=== PATIENT | male | born 1955 | race Caucasian/White ===

== ENCOUNTER → 2024-09-16 11:06 | Outpatient (REF) | payer MEDICARE, SELFPAY | LOC: RAD 11:06 | PROVIDERS: ATTENDING PHYSICIAN Internal Medicine Geriatric Medicine | DX: M25.512 Pain in left shoulder (principal) | CPT/HCPCS: 73030 ==

== ENCOUNTER 2025-04-08 12:33 | Emergency (ER) | payer MEDICARE, SELFPAY ==
[2025-04-08 12:35] VITALS: BP 152/87
[2025-04-08 13:41] LABS: Hematocrit 39.0 % (39.0-52.0); Hemoglobin 13.1 g/dL (13.0-18.0); Mean Corp Hgb Conc. 33.6 g/dL (33.0-37.0); Mean Corpuscular Volume 89.7 fL (80.0-94.0); Nucleated Red Blood Cells % 0 % (-); Platelet Count 244 10^3/uL (130-400); Red Cell Dist. Width 12.1 % (11.5-14.5)
[2025-04-08 13:51] LABS: INR 0.90; PT 12.4 Sec (11.4-14.6)
[2025-04-08 13:52] LABS: APTT 25.3 Sec (23.4-35.0)
[2025-04-08 14:01] LABS: ALT (SGPT) 27 U/L (0-50); AST (SGOT) 28 U/L (17-59); Albumin 4.4 g/dl (3.5-5.0); Alkaline Phosphatase 40 U/L (38-126); Blood Urea Nitrogen 18 mg/dl (9-20); Calcium 9.4 mg/dl (8.4-10.2); Carbon Dioxide 31 mmol/L (22-30); Chloride 101 mmol/L (98-107); Glucose 104 mg/dl (70-99); Potassium 4.3 mmol/L (3.5-5.1); Sodium 138 mmol/L (135-145); Total Protein 7.2 g/dl (6.3-8.2); eGFR > 60.00
--- NOTE | 2025-04-08 15:19 | ED.GENMED ---
History of Present Illness
General
Chief Complaint: DVT/Possible Blood Clot
Source: patient
Exam Limitations: none
Time Seen by Provider: 04/08/25 12:56
Nursing documentation reviewed up to this point in time: agreed with
Course
Orders/Labs/Results
Orders:
Orders
04/08/25 12:41
Legs, left US [US Periph Venous LOWER Ext LT] Urgent
Comment:
Reason For Exam: left lower leg/calf redness and pain x 4days
04/08/25 13:34
Complete Blood Count/With Diff Urgent
Comprehensive Metabolic Panel Urgent
PTT Urgent
Prothrombin Time Urgent
Abnormal Lab Results
04/08/25
13:34
WBC 4.3 L 10^3/uL
(4.8-10.8)
RBC 4.35 L 10^6/uL
(4.70-6.10)
Monocytes % 12.6 H %
(1.7-9.3)
Eosinophils % 6.7 H %
(0-6)
Carbon Dioxide 31 H mmol/L
(22-30)
Glucose 104 H mg/dl
(70-99)
04/08/25 13:34
04/08/25 13:34
Vital Signs
Initial and Last Documented VS:
Initial Vital Signs
Temp Pulse Resp BP Pulse Ox
37.1 C 69 20 152/87 98
04/08/25 12:35 04/08/25 12:35 04/08/25 12:35 04/08/25 12:35 04/08/25 12:35
Last Documented Vital Signs
Temp Pulse Resp BP Pulse Ox
37.1 C 69 20 152/87 98
04/08/25 12:35 04/08/25 12:35 04/08/25 12:35 04/08/25 12:35 04/08/25 12:35
*Pulse Oximetry
SaO2: 98
Oxygen Mode of Delivery: Room air
ED Attending Note
-
Portions of this chart may have been created with voice recognition software.� Occasional wrong word or��sound alike� substitutions may have occurred due to the inherent limitations of voice recognition software.
Discharge Plan
Departure
Referrals:
Tonya Treviño MD [Family Provider]
Interventions
Interventions:
*Risk Screen - Suicide Last Done: 04/08/25 12:40
*General Assessment Last Done: 04/08/25 12:37
*Neglect/Abuse Screening Last Done: 04/08/25 12:37
ED- Cardiac Assessment Last Done: 04/08/25 14:24
ED- Pulmonary Assessment Last Done: 04/08/25 14:24
ED-Skin Assessment Last Done: 04/08/25 14:24
Discharge Date and Time
Print Language: EQUATORIAL GUINEAN
[2025-04-08 15:35] VITALS: BMI 26.4
[2025-04-08 15:37] VITALS: BP 115/70
[2025-04-08] MEDS: KEFLEX 500 MG PO (15:57)
== END 2025-04-08 16:08 | disposition home or self-care (01) ==
LOC: EMR 12:33
PROVIDERS: Physician Assistant; EMERGENCY PHYSICIAN Emergency Medicine; FAMILY PHYSICIAN Internal Medicine Geriatric Medicine
DX: M79.662 Pain in left lower leg (principal); L53.9 Erythematous condition, unspecified; E78.5 Hyperlipidemia, unspecified; N40.0 Benign prostatic hyperplasia without lower urinary tract symptoms
CPT/HCPCS: 99284; 80053; 85025; 85610; 85730; 93971